=== PATIENT | female | born 1985 | race Caucasian/White ===

== ENCOUNTER 2022-03-06 10:43 | Inpatient (IN) | payer OTHER ==
[~2022-03-06] VITALS: Ht 170.2 cm; Wt 127.0 kg
[2022-03-08] MEDS ORDERED: EXPECTA PRENAT1 EACH PO (01:37)
[2022-03-08] MEDS ORDERED: ASPIRIN81 MG PO (01:37)
[2022-03-08] MEDS ORDERED: ACYCLOVIR400 MG PO (01:37)
--- NOTE | 2022-03-08 09:35 | PR ---
[facility] [address] [place], [place] [address] Signed Progress Notes IP Datetime Report Generated by CPN: 03/08/2022 09:35 PROGRESS NOTES: [id number] Impression: Normal Progression of Labor Procedures: Artificial ROM Plan: Continue Present Management; Anticipate Vaginal Delivery VITAL SIGNS: [id number] Vital Signs: Reviewed; Within Normal Limits EXAM: [id number] Dilatation: 2.5 Effacement: 75 Station: -2 Contractions: rare MEMBRANES: [id number] Membranes Status: Ruptured Comments: Cytotec x2, having only occasional contracitons, but some change in cervix. Will continue monitoring. Will want Epidural later. FETUS A: [id number] FHR Baseline: 130 Variability: Moderate 6-25bpm Accelerations: 15X15 Decelerations: None FHR Category: Category I Presentation: Vertex FETUS B: [id number] Signing Physician: Mack South MD Copies: ~ *Electronically Signed* 03/08/22 0935 MACK SOUTH MD PATIENT NAME: SWAPNA ALLEN MELANIE PROGRESS NOTE DATE OF : 87 PHYSICIAN: MACK SOUTH MD RPT #: [id number] REPORT IS CONFIDENTIAL AND NOT TO BE RELEASED WITHOUT AUTHORIZATION
--- NOTE | 2022-03-08 12:59 | PR ---
[facility] [address] [place], [place] [address] Signed Progress Notes IP Datetime Report Generated by CPN: 03/08/2022 12:58 PROGRESS NOTES: [id number] Impression: Normal Progression of Labor Procedures: Artificial ROM Plan: Anticipate Vaginal Delivery VITAL SIGNS: [id number] Vital Signs: Reviewed; Within Normal Limits EXAM: [id number] Dilatation: 8.0 Effacement: 100 Station: -1 Contractions: rare MEMBRANES: [id number] Membranes Status: Ruptured Comments: Comfortable with Epidural. Cervis still slightly posterior. Will continue monitoring. FETUS A: [id number] FHR Baseline: 130 Variability: Moderate 6-25bpm Accelerations: 15X15 Decelerations: None FHR Category: Category I Presentation: Vertex FETUS B: [id number] Signing Physician: Lesa South MD Copies: ~ *Electronically Signed* 03/08/22 1258 LESA SOUTH MD PATIENT NAME: SWAPNA ALLEN PROGRESS NOTE DATE OF : 87 PHYSICIAN: LESA SOUTH MD RPT #: [id number] REPORT IS CONFIDENTIAL AND NOT TO BE RELEASED WITHOUT AUTHORIZATION
--- NOTE | 2022-03-09 10:31 | PR ---
[facility] [address] [place] [address] Signed PP Progress Notes Datetime Report Generated by CPN: 03/09/2022 10:31 SUBJECTIVE: [id number] Pain: Within Normal Limits Nausea/Vomiting: Denies Vital Signs: [id number] Vital Signs: Reviewed; Within Normal Limits Notable Details: PP Hgb/Hct = 9.5/29.9 EXAM: Ongoing Abdomen/Uterus: Normal Lochia: Normal Extremities: Normal IMPRESSION/PLAN/PROCEDURES: [id number] Impression: Normal Progression Plan: Discharge Procedures: None Progress Notes: Doing well, without complaint, would like to go home today. Signing Physician: Lesa South MD Copies: ~ *Electronically Signed* 03/09/22 1031 LESA SOUTH MD PATIENT NAME: SWAPNA ALLEN PROGRESS NOTE DATE OF : 87 PHYSICIAN: LESA SOUTH MD RPT #: [id number] REPORT IS CONFIDENTIAL AND NOT TO BE RELEASED WITHOUT AUTHORIZATION
== END 2022-03-09 22:12 | disposition home or self-care (01) | DRG 806 ==
LOC: FBC 03-08 00:27
PROVIDERS: ADMIT General Practice; ATTEND General Practice
PROC: 10E0XZZ Delivery of Products of Conception, External Approach (ICD-10-PCS; principal; 2022-03-08)
PROC: 0HQ9XZZ Repair Perineum Skin, External Approach (ICD-10-PCS; 2022-03-08)
PROC: 3E0R3BZ Introduction of Anesthetic Agent into Spinal Canal, Percutaneous Approach (ICD-10-PCS; 2022-03-08)
PROC: 00HU03Z Insertion of Infusion Device into Spinal Canal, Open Approach (ICD-10-PCS; 2022-03-08)
PROC: 10907ZC Drainage of Amniotic Fluid, Therapeutic from Products of Conception, Via Natural or Artificial Opening (ICD-10-PCS; 2022-03-08)
PROC: 3E0DXGC Introduction of Other Therapeutic Substance into Mouth and Pharynx, External Approach (ICD-10-PCS; 2022-03-08)
DX: O99.02 Anemia complicating childbirth (principal); O98.52 Other viral diseases complicating childbirth; Z37.0 Single live birth; D63.8 Anemia in other chronic diseases classified elsewhere; Z3A.39 39 weeks gestation of pregnancy; Z20.822 Contact with and (suspected) exposure to COVID-19; O70.0 First degree perineal laceration during delivery; Z88.6 Allergy status to analgesic agent; Z88.8 Allergy status to other drugs, medicaments and biological substances; B00.9 Herpesviral infection, unspecified
CPT/HCPCS: 36415; 85027; 86850; 86900; 86901; 87502; A9270; J2590; J2795; J3010; U0003

== ENCOUNTER 2022-05-22 16:47 | Emergency (ER) | payer OTHER ==
[~2022-05-22] VITALS: Ht 182.9 cm; Wt 115.8 kg
[~2022-05-22 16:47] MED LIST: ACYCLOVIR400 MG PO; ASPIRIN81 MG PO; EXPECTA PRENAT1 EACH PO
--- OUTSIDE RECORDS SUMMARY | 2022-05-22 16:54 | XMS ---
PreManage Notification: SWAPNA HYATT Security Screen Examiner Events No recent Security Events currently on file CRITERIA MET - [facility] - 2 Visits in 30 Days CARE PROVIDERS There are no care providers on record at this time. Elpidio has no Care Guidelines for this patient. [facility]12 MO.) [facility] NOTE: Visits indicate total known visits. ED/C VISIT TRACKING (12 MO.) 05/22/2022 16:[facility] COMPLAINT: - RT THUMB INJURY 05/22/2022 15:04 [facility] [place] TYPE: Emergency COMPLAINT: - RT HAND INJURY INPATIENT VISIT TRACKING (12 MO.) 03/08/2022 00:27 RAD[facility] Siu [place] TYPE: [facility] COMPLAINT: - INDUCTION DIAGNOSES: - Allergy status to other drugs, medicaments and biological substances - 39 weeks gestation of - Allergy status to analgesic agent - First degree perineal laceration during delivery - Allergy status to other drugs, medicaments and biological substances - Anemia in other chronic diseases classified elsewhere - First degree perineal laceration during delivery - Single live - Anemia complicating childbirth - Anemia in other chronic diseases classified elsewhere - 39 weeks gestation of - Single live - Contact with and (suspected) exposure to COVID-19 - Contact with and (suspected) exposure to COVID-19 - Allergy status to analgesic agent - Other viral diseases complicating childbirth - Anemia complicating , third trimester - Other viral diseases complicating childbirth - Herpesviral infection, unspecified - Herpesviral infection, unspecified - Anemia complicating childbirth [email or web address]
[2022-05-22] MEDS ORDERED: TOPAMAX100 MG PO (17:08)
== END 2022-05-22 20:05 | disposition home or self-care (01) ==
LOC: ED 16:47
DX: S63.601A Unspecified sprain of right thumb, initial encounter (principal); W19.XXXA Unspecified fall, initial encounter
CPT/HCPCS: 73130